=== PATIENT | female | born 1980 | race Caucasian/White ===

== ENCOUNTER 2018-08-21 06:26 | Inpatient (IN) | payer BC ==
[2018-08-21 07:08] LABS: ADD MAN DIFF? NO
[2018-08-21 07:12] LABS: WHITE BLOOD COUNT 6.8 10^3/ul (4.8-10.8)
[2018-08-21 07:12] LABS: BASOPHILS % 0.6 % (0.0-2.0); EOSINOPHILS # 0.1 10^3/ul (0.0-0.5); EOSINOPHILS % 2.1 % (0.0-7.0); HEMATOCRIT 39.2 % (37.0-47.0); HEMOGLOBIN 12.8 g/dl (12.0-16.0); LYMPHOCYTES % 44.9 % (15.0-51.0); MEAN CORPUSCULAR HEMOGLOBIN 28.3 pg (29.0-33.0); MEAN CORPUSCULAR HGB CONC 32.7 g/dl (32.0-37.0); MEAN CORPUSCULAR VOLUME 86.5 fl (82.0-101.0); MONOCYTE # 0.4 10^3/ul (0.3-0.9); MONOCYTES % 6.1 % (0.0-11.0); NEUTROPHIL # 3.1 10^3/ul (1.6-7.5); NEUTROPHILS % 46.3 % (39.0-77.0); PLATELET COUNT 266 10^3/UL (140-415); RED BLOOD COUNT 4.53 10^6/ul (4.20-5.40); RED CELL DISTRIBUTION WIDTH 12.3 % (11.5-14.5)
[2018-08-21 07:32] LABS: ALANINE AMINOTRANSFERASE 11 IU/L (13-69); ALBUMIN 4.1 g/dl (3.3-4.9); ALKALINE PHOSPHATASE 49 IU/L (42-121); ANION GAP 9 (5-13); ASPARTATE AMINO TRANSFERASE 18 IU/L (15-46); BILIRUBIN,INDIRECT 0.1 mg/dl (0-1.1); BILIRUBIN,TOTAL 0.1 mg/dl (0.2-1.3); BLOOD UREA NITROGEN 18 mg/dl (7-20); CARBON DIOXIDE 26 mmol/L (21-31); CHLORIDE 107 mmol/L (97-110); CREATININE 0.62 mg/dl (0.44-1.00); Estimated GFR > 60 mL/min (>60); GLUCOSE 88 mg/dl (70-220); POTASSIUM 4.2 mmol/L (3.5-5.1); SODIUM 142 mmol/L (135-144); TOTAL PROTEIN 6.5 g/dl (6.1-8.1)
[2018-08-21 07:33] LABS: PARTIAL THROMBOPLASTIN TIME 28.3 Sec (23.0-35.0); PROTIME 13.3 Sec (11.9-14.9)
[2018-08-21] MEDS ORDERED: MIDAZOLAM 1 MG/ML 2 ML INJ (08:21)
[2018-08-21] MEDS ORDERED: FENTAnyl 50 MCG/ML VIAL (08:21)
[2018-08-21] MEDS ORDERED: morphine SULFATE/PF (10 MG/10 ML) INJ (08:23)
[2018-08-21] MEDS: VASOPRESSIN 20 UNITS INJ (09:11)
[2018-08-21] MEDS ORDERED: PROPOFOL 20 ML (09:58)
[2018-08-21] MEDS ORDERED: LIDOCAINE 2% (SDV) 5 ML INJ (09:58)
[2018-08-21] MEDS ORDERED: ONDANSETRON 4 MG INJ (09:58)
[2018-08-21] MEDS ORDERED: CEFAZOLIN 1 GM INJ (09:58)
[2018-08-21] MEDS ORDERED: METOCLOPRAMIDE 10 MG INJ IV (10:30)
[2018-08-21] MEDS ORDERED: ONDANSETRON 4 MG INJ IV (10:30)
[2018-08-21] MEDS ORDERED: FENTAnyl 50 MCG/ML VIAL IV (10:30)
[2018-08-21] MEDS ORDERED: KETOROLAC 30 MG INJ IV (10:30)
[2018-08-21] MEDS ORDERED: NALOXONE (0.4 MG/ML) INJ IV (10:30)
[2018-08-21] MEDS ORDERED: HYDROmorphONE 1 MG/5 ML IV SYRINGE IV (10:30)
[2018-08-21] MEDS ORDERED: MEPERIDINE 25 MG INJ IV (10:30)
[2018-08-21] MEDS ORDERED: DIPHENHYDRAMINE 50 MG INJ IV (10:30)
[2018-08-21] MEDS: LACTATED RINGER'S 1,000 ML IV ×5 (10:42→21:00)
[2018-08-21] MEDS: HYDROmorphONE 1 MG/5 ML IV SYRINGE IV (10:46)
[2018-08-21] MEDS ORDERED: ALBUTEROL HFA 8 GM INHALER INH (11:00)
[2018-08-21] MEDS ORDERED: IBUPROFEN 400 MG TAB (11:54)
[2018-08-21] MEDS: IBUPROFEN 800 MG TAB PO ×2 (11:57→18:20)
[2018-08-21] MEDS: OXYCODONE/ACETAMINOPHEN (5/325) TAB PO ×2 (13:20→21:25)
[2018-08-21] MEDS: DIPHENHYDRAMINE 50 MG INJ IV ×2 (15:21→21:26)
[2018-08-21] MEDS ORDERED: KETOROLAC 30 MG INJ (16:29)
[2018-08-21] MEDS: KETOROLAC 30 MG INJ IV (16:33)
[2018-08-22] MEDS: IBUPROFEN 800 MG TAB PO ×5 (00:21→20:36)
[2018-08-22] MEDS: LACTATED RINGER'S 1,000 ML IV ×5 (03:51→23:34)
[2018-08-22 05:26] LABS: ADD MAN DIFF? NO
[2018-08-22 05:31] LABS: BASOPHILS % 0.5 % (0.0-2.0); EOSINOPHILS # 0.2 10^3/ul (0.0-0.5); EOSINOPHILS % 2.4 % (0.0-7.0); HEMATOCRIT 37.3 % (37.0-47.0); HEMOGLOBIN 11.9 g/dl (12.0-16.0); LYMPHOCYTES # 2.5 10^3/ul (0.8-2.9); LYMPHOCYTES % 31.6 % (15.0-51.0); MEAN CORPUSCULAR HEMOGLOBIN 28.2 pg (29.0-33.0); MEAN CORPUSCULAR HGB CONC 31.9 g/dl (32.0-37.0); MEAN CORPUSCULAR VOLUME 88.4 fl (82.0-101.0); MONOCYTE # 0.7 10^3/ul (0.3-0.9); MONOCYTES % 9.2 % (0.0-11.0); NEUTROPHIL # 4.4 10^3/ul (1.6-7.5); PLATELET COUNT 221 10^3/UL (140-415); RED BLOOD COUNT 4.22 10^6/ul (4.20-5.40); RED CELL DISTRIBUTION WIDTH 12.6 % (11.5-14.5)
[2018-08-22 05:31] LABS: WHITE BLOOD COUNT 7.8 10^3/ul (4.8-10.8)
[2018-08-22] MEDS: OXYCODONE/ACETAMINOPHEN (5/325) TAB PO ×2 (08:21→18:02)
[2018-08-22] MEDS: KETOROLAC 30 MG INJ IV ×2 (13:30→21:46)
[2018-08-22] MEDS: DOCUSATE SODIUM 100 MG CAP PO (21:46)
[2018-08-23] MEDS: IBUPROFEN 800 MG TAB PO (05:13)
[2018-08-23] MEDS: MAGNESIUM CITRATE 300 ML BTL PO (08:13)
[2018-08-23] MEDS: DOCUSATE SODIUM 100 MG CAP PO (08:13)
== END 2018-08-23 12:17 | disposition home or self-care (01) | DRG 743 ==
LOC: REC 06:26 → PP2 11:35
PROC: 0UB90ZZ Excision of Uterus, Open Approach (ICD-10-PCS; principal; 2018-08-21 08:00)
DX: D25.9 Leiomyoma of uterus, unspecified (principal); N96 Recurrent pregnancy loss; N83.8 Other noninflammatory disorders of ovary, fallopian tube and broad ligament
CPT/HCPCS: 80053; 85025; 85610; 85730; 87086; 88305